=== PATIENT | female | born 1990 | race African-American/Black ===

== ENCOUNTER → 2018-06-28 | Outpatient (CLI) | payer SELFPAY ==
[2016-02-19 12:23] VITALS: BP 124/78
[~2018-06-28] MED LIST: IBUP-1027 PO
--- NOTE | 2018-06-29 08:12 | RAD ---
Obstetrical ultrasound, 06/28/2018: HISTORY: , unsure of dates Transabdominal scans were obtained. The uterus contains a single fetus demonstrating a crown-rump length of 5.8 cm. This suggests a gestational age of 12 weeks and 2 days yielding a sonographic EDC of 01/08/2019. activity and cardiac motion are present. The heart rate is 147 bpm. There is no evidence of subchorionic hemorrhage. The cervical length is approximately 5 cm. The ovaries are of normal size. A small 1.8 cm complicated cyst is present in the right ovary. The adnexal regions are otherwise unremarkable. No free fluid is evident in the pelvis. IMPRESSION: Single viable intrauterine fetus of 12-13 weeks gestational age as described above. Electronically signed by: Ward Caruso MD (06/29/2018 8:09 AM) [facility]
== END | disposition home or self-care (01) ==
LOC: US
PROVIDERS: ATTEND Family Medicine
DX: Z34.81 Encounter for supervision of other normal pregnancy, first trimester (principal); Z3A.13 13 weeks gestation of pregnancy
CPT/HCPCS: 76801

== ENCOUNTER 2021-04-18 13:14 | Emergency (ER) | payer MEDICAID ==
[~2021-04-18] VITALS: Ht 170.2 cm; Wt 81.8 kg
[2021-04-18] MEDS ORDERED: IV NORMAL SALINE 1000ML BAG 1,000 ML IV SCH (13:45)
[2021-04-18] MEDS ORDERED: fentaNYL PF VIAL 100 MCG/2 ML VIAL IVP ONE ×3 (13:45→16:45)
--- NOTE | 2021-04-18 13:52 | PHYS DOC ---
General Adult EDM: Chief Complaint: VAGINAL BLEEDING HPI: HPI: Patient is a 30 year old female who presents with abdominal cramping and large amount of vaginal bleeding that started about an hour prior to arrival. Patient was here [facility] for an ultrasound because she has her first appointment with Dr. Kim tomorrow. Ultrasound showing miscarriage at 9 weeks 5 days and had no cardiac activity. Patient rating her pain 7 out of 10 at this time. Patient stated she feels she needs to push. Patient is . Review of Systems: Review of Systems: Constitutional: Denies fever or chills. [] Eyes: Denies change in visual acuity. [] HENT: Denies nasal congestion or sore throat. [] Respiratory: Denies cough or shortness of breath. [] Cardiovascular: Denies chest pain or edema. [] GI: + abdominal pain, denies nausea, vomiting, bloody stools or diarrhea. [] : Denies dysuria. + Vaginal bleeding [] Musculoskeletal: Denies back pain or joint pain. [] Integument: Denies rash. [] Neurologic: Denies headache, focal weakness or sensory changes. [] Endocrine: Denies polyuria or polydipsia. [] Lymphatic: Denies swollen glands. [] Psychiatric: Denies depression or anxiety. [] Heart Score: C/O Chest Pain: No Current Medications: Current Medications Medications (Trade) Dose Ordered Sig/Violet Start Time Stop Time Status Last Admin Dose Admin Fentanyl Citrate (Fentanyl 2ml Vial) 75 mcg 1X ONCE 04/18/21 13:45 04/18/21 13:46 UNV Sodium Chloride 1,000 ml @ 1,000 mls/hr Q1H 04/18/21 13:45 04/18/21 14:44 UNV Allergies: Allergies: Allergies Coded Allergies Type Severity Reaction Last Updated Verified nifedipine Allergy Severe Anaphylaxis 02/19/16 Yes codeine Allergy Intermediate Nausea and Vomiting 02/19/16 Yes Physical Exam: PE: Constitutional: Well developed, well nourished, no acute distress, non-toxic appearance. [] HENT: Normocephalic, atraumatic, bilateral external ears normal, oropharynx moist, no oral exudates, nose normal. [] Eyes: PERRLA, EOMI, conjunctiva normal, no discharge. [] Neck: Normal range of motion, no tenderness, supple, no stridor. [] Cardiovascular:Heart rate regular rhythm, no murmur [] Lungs & Thorax: Bilateral breath sounds clear to auscultation [] Abdomen: Bowel sounds normal, soft, no tenderness, no masses, no pulsatile masses. Vaginal bleeding [] Skin: Warm, dry, no erythema, no rash. [] Back: No tenderness, no CVA tenderness. [] Extremities: No tenderness, no cyanosis, no clubbing, ROM intact, no edema. [] Neurologic: Alert and oriented X 3, normal motor function, normal sensory function, no focal deficits noted. [] Psychologic: Affect normal, judgement normal, mood normal. [] EKG: EKG: [] Radiology/Procedures: Radiology/Procedures: [] Impression: [facility] [address] [address] IMAGING REPORT Signed PATIENT: CORINA PRICE ACCOUNT: [id number] : 1990 LOCATION: ER AGE: 30 SEX: F EXAM STATUS: REG ER ORD. PHYSICIAN: JUAN ALBERTO JULIEN APRN REASON: increased pain, large amount vaginal bleeding PROCEDURE: OB < 14 WKS Obstetric ultrasound less than 14 weeks: Reason for examination: Increased pain with large amount of vaginal bleeding. Fe ferny demise on previous ultrasound examination. Comparison is made to previous study dated 04/16/2021. Transvaginal ultrasound examination of the pelvis was performed. Uterus measures 11 x 6.6 x 5.6 cm in greatest dimension. There is thickened endometrium at 2 cm. No intrauterine gestation is now identified.. Right ovary measures 4.8 x 3.2 x 1.9 cm in greatest dimension and shows good vascular flow and contains a 1.9 x 1.3 x 0.9 cm simple cyst. Left ovary measures 2.4 x 2.2 x 2.0 cm in greatest dimensions shows good vascular flow and multiple small follicles. No free fluid is seen. IMPRESSION: No intrauterine gestation is present on the current exam which would be consistent with spontaneous . 1.9 cm right ovarian cyst.. Electronically signed by: Reginaldo Obrien MD (04/18/2021 4:12 PM) [facility] DICTATED and SIGNED BY: REGINALDO OBRIEN MD DATE: 04/18/21 [id number] [facility] [address] [place] [address] IMAGING REPORT Signed PATIENT: CORINA PRICE ACCOUNT: [id number] : 1990 LOCATION: US AGE: 30 SEX: F EXAM STATUS: REG CLI ORD. PHYSICIAN: AYESHA ALVARENGA MD REASON: SMALL FOR DATES PROCEDURE: OB <14 WKS W/TV EXAM: Obstetrics sonogram. HISTORY: Small for dates. TECHNIQUE: Sonographic imaging of the pelvis was performed. COMPARISON: None. FINDINGS: The uterus measures 11.8 x 8.2 x 6.3 cm. The cervix measures 4.3 cm in length. There is a single intrauterine gestational sac with pole. The mean sac diameter is 4.72 cm, corresponding with a gestational age of 10 weeks and 2 days. The crown-rump length is 2.41 cm, corresponding with a gestational age of 9 weeks and 1 day. The estimated gestational age patient combined mean sac diameter and crown-rump length measurements is 9 weeks and 5 days. No cardiac activity is seen. The gestational sac is abnormal in configuration. The maternal ovaries are normal in size and demonstrate normal blood flow.. IMPRESSION: Single intrauterine fetus with an estimated gestational age of 9 weeks and 5 days and absent cardiac activity. This is consistent with intrauterine demise. Electronically signed by: Lindsay Mcrae MD (04/16/2021 1:00 PM) [id number] DICTATED and SIGNED BY: LINDSAY MCRAE MD DATE: 04/16/21 [id number] 0 Course & Med Decision Making: Course & Med Decision Making Pertinent Labs and Imaging studies reviewed. (See chart for details) See HPI. Alert and oriented x4. Ambulatory with steady gait. Skin Banning warm and dry. Large amount of vaginal bleeding with large clots. Patient is vinita and cramping. She is currently miscarrying. Pelvic Exam: Railroad Mechanic present Abdomen: Nontender External Genitalia: Normal Skin Speculum: Normal vaginal mucosa, large vaginal cervical bleeding with large clots Bimanual: No adnexal masses or tenderness, No CMT Ultrasound today shows no intrauterine . Patient is likely miscarriage fetus. I have done another pelvic exam and she is still having very large clots and blood is still trickling. I believe that the bleeding has slowed slightly. Patient is still having pain. She has had a total of 1 L of normal saline. I have ordered another liter for her. Her vital signs are stable. She has had a total of 2 doses of 75 mcg of fentanyl. I have ordered her a dose of 50 mcg of fentanyl now. I have spoke to Dr. Kim and he states he will come in and do a D&C. [] Dragon Disclaimer: Dragon Disclaimer: This electronic medical record was generated, in whole or in part, using a voice recognition dictation system. Departure Departure Impression: Primary Impression: Miscarriage Disposition: ADMITTED INPATIENT Admitting Physician: DILAN (DR KIM) Condition: STABLE Referrals: AYESHA ALVARENGA MD (PCP) AYESHA KIM MD Patient Instructions: Miscarriage Additional Instructions: Follow-up with Dr. Kim tomorrow as you are scheduled. Drink plenty of fluids to stay hydrated. If you begin going through more than 1 pad an hour return to the emergency room. JUAN ALBERTO JULIEN APRN Apr 18, 2021 13:52
[2021-04-18] MEDS ORDERED: fentaNYL PF VIAL 100 MCG/2 ML VIAL ONE ×3 (13:55→19:43)
[2021-04-18 14:12] LABS: BASO % 1 % (0-3); EOS # 0.2 x10^3/uL (0.0-0.7); EOS % 2 % (0-3); HEMATOCRIT 34.7 % (36.0-47.0); HEMOGLOBIN 11.3 g/dL (12.0-15.5); LYMPH # 2.1 x10^3/uL (1.0-4.8); LYMPH % 21 % (24-48); MEAN CORPUSCULAR HEMOGLOBIN 28 pg (25-35); MEAN CORPUSCULAR HGB CONC 33 g/dL (31-37); MEAN CORPUSCULAR VOLUME 85 fL (79-100); MONO # 0.7 x10^3/uL (0.0-1.1); MONO % 7 % (0-9); NEUT # 7.1 x10^3/uL (1.8-7.7); NEUT % 71 % (31-73); PLATELET COUNT 264 x10^3/uL (140-400); RED BLOOD COUNT 4.08 x10^6/uL (3.50-5.40); RED CELL DISTRIBUTION WIDTH 13.5 % (11.5-14.5); WHITE BLOOD COUNT 10.1 x10^3/uL (4.0-11.0)
[2021-04-18 14:27] LABS: CALCIUM 8.5 mg/dL (8.5-10.1); CREATININE 0.7 mg/dL (0.6-1.0); GFR 118.9
[2021-04-18 14:32] LABS: ALBUMIN/GLOBULIN RATIO 0.8 (1.0-1.7); TOTAL BILIRUBIN 0.3 mg/dL (0.2-1.0); TOTAL PROTEIN 6.9 g/dL (6.4-8.2)
--- NOTE | 2021-04-18 16:15 | RAD ---
Obstetric ultrasound less than 14 weeks: Reason for examination: Increased pain with large amount of vaginal bleeding. demise on previou s ultrasound examination. Comparison is made to previous study dated 04/16/2021. Transvaginal ultrasound examination of the pelvis was performed. Uterus measures 11 x 6.6 x 5.6 cm in greatest dimension. There is thickened endometrium at 2 cm. No i ntrauterine gestation is now identified.. Right ovary measures 4.8 x 3.2 x 1.9 cm in greatest dimension and shows good vascular flow and contai ns a 1.9 x 1.3 x 0.9 cm simple cyst. Left ovary measures 2.4 x 2.2 x 2.0 cm in greatest dimensions shows good vascular flow and multiple s mall follicles. No free fluid is seen. IMPRESSION: No intrauterine gestation is present on the current exam which would be consistent with spontaneous a bortion. 1.9 cm right ovarian cyst.. Electronically signed by: Lorrie Harmon MD (04/18/2021 4:12 PM) [facility]
[2021-04-18] MEDS ORDERED: IV NORMAL SALINE 1000ML BAG 1,000 ML IV ONE (16:45)
[2021-04-18] MEDS ORDERED: ONDANSETRON PF 4 MG/2 ML VIAL. ONE (17:22)
[2021-04-18] MEDS ORDERED: LIDOCAINE 2% PF 5 ML VIAL. ONE (17:22)
[2021-04-18] MEDS ORDERED: PROPOFOL 10 MG/ML (20ML) VIAL. IV ONE (17:22)
[2021-04-18] MEDS ORDERED: MIDAZOLAM HCL/PF 2 MG/2 ML VIAL. ONE (17:23)
--- NOTE | 2021-04-18 17:42 | PDOC1 ---
CORRESPONDENCE ANALYST H&P Date of Admission: Date of Admission: History of Present Illness: The pt is a 30y with a LMP of 01/13/21 who presented to the ER with VB and pain. The pt underwent an u/s on Monday (04/16/21) revealing a single intrauterine fetus with an estimated gestational age of 9 weeks and 5 days and absent cardiac activity. This is consistent with intrauterine demise. Since the u/s she has had some light pink d/c, that seemed nml. Early today she felt fine, and then later she started to experience a bunch of pain. She did felt like something was coming out of her and noticed a lot of blood coming out. She does not recal seeing any POC just clots. The bleeding kept coming so her mother took her to the hospital. She could not even walk. In the ER her hgb was found to be 11.3. A repeat u/s revealed the following: Uterus measures 11 x 6.6 x 5.6 cm in greatest dimension. There is thickened endometrium at 2 cm. No intrauterine gestation is now identified. The pt feels her pain has not improved at all. She is unsure if her bleeding has slowed. Discussed D&C with the pt. She was not even aware of the u/s re sults from Monday, so she is taking all this information very hard. PMH: HTN (per pt) PSH: Lap ovarian cystectomy Meds: None All: nifedipine, codeine, pyridium OBHx: TSVD x 1, SAB x 1 Photographic Hand Developer: LMP 01/13/21 15yo / regular SH: no tob, no EtOH FH: CHF, DM, CA, alzheimers Medications: Meds: Current Medications Medications (Trade) Dose Ordered Sig/Violet Route PRN Reason Start Time Stop Time Status Last Admin Dose Admin Sodium Chloride 1,000 ml @ 1,000 mls/hr Q1H IV 04/18/21 13:45 04/18/21 14:44 DC 04/18/21 14:03 Fentanyl Citrate (Fentanyl 2ml Vial) 75 mcg 1X ONCE IVP 04/18/21 13:45 04/18/21 13:59 DC 04/18/21 14:00 Fentanyl Citrate (Fentanyl 2ml Vial) 75 mcg 1X ONCE IVP 04/18/21 15:15 04/18/21 15:16 DC 04/18/21 15:34 Sodium Chloride 1,000 ml @ 1,000 mls/hr 1X ONCE IV 04/18/21 16:45 04/18/21 17:44 04/18/21 17:22 Fentanyl Citrate (Fentanyl 2ml Vial) 50 mcg 1X ONCE IVP 04/18/21 16:45 04/18/21 16:46 DC 04/18/21 17:15 Allergies: Coded Allergies: nifedipine (Verified Allergy, Severe, Anaphylaxis, 02/19/16) codeine (Verified Allergy, Intermediate, Nausea and Vomiting, 02/19/16) Physical Exam: Vital Signs: Vital Signs Date Time Temp Pulse Resp B/P (MAP) Pulse Ox O2 Delivery O2 Flow Rate FiO2 04/18/21 17:15 17 100 Room Air 04/18/21 17:13 89 108/61 (77) 04/18/21 13:15 98.9 98.9 PE: GENERAL: No apparent distress. Alert and oriented. HEENT: Head normocephalic, atraumatic. NECK: Supple LUNGS: Clear to auscultation. HEART: RRR, S1, S2 present, pulses intact ABDOMEN: Soft, positive bowel sounds. EXTREMITIES: No cyanosis or edema. NEUROLOGIC: Normal speech, normal tone PSYCHIATRIC: Normal affect, normal mood. SKIN: No ulceration. Labs: Laboratory Tests Test 04/18/21 13:50 White Blood Count 10.1 x10^3/uL (4.0-11.0) Red Blood Count 4.08 x10^6/uL (3.50-5.40) Hemoglobin 11.3 g/dL (12.0-15.5) L Hematocrit 34.7 % (36.0-47.0) L Mean Corpuscular Volume 85 fL (79-100) Mean Corpuscular Hemoglobin 28 pg (25-35) Mean Corpuscular Hemoglobin Concent 33 g/dL (31-37) Red Cell Distribution Width 13.5 % (11.5-14.5) Platelet Count 264 x10^3/uL (140-400) Neutrophils (%) (Auto) 71 % (31-73) Lymphocytes (%) (Auto) 21 % (24-48) L Monocytes (%) (Auto) 7 % (0-9) Eosinophils (%) (Auto) 2 % (0-3) Basophils (%) (Auto) 1 % (0-3) Neutrophils # (Auto) 7.1 x10^3/uL (1.8-7.7) Lymphocytes # (Auto) 2.1 x10^3/uL (1.0-4.8) Monocytes # (Auto) 0.7 x10^3/uL (0.0-1.1) Eosinophils # (Auto) 0.2 x10^3/uL (0.0-0.7) Basophils # (Auto) 0.0 x10^3/uL (0.0-0.2) Maternal Serum HCG Beta Subunit 731 mIU/mL (0-5) H Sodium Level 139 mmol/L (136-145) Potassium Level 4.0 mmol/L (3.5-5.1) Chloride Level 105 mmol/L (98-107) Carbon Dioxide Level 21 mmol/L (21-32) Anion Gap 13 (6-14) Blood Urea Nitrogen 10 mg/dL (7-20) Creatinine 0.7 mg/dL (0.6-1.0) Estimated GFR (Cockcroft-Gault) 118.9 BUN/Creatinine Ratio 14 (6-20) Glucose Level 104 mg/dL (70-99) H Calcium Level 8.5 mg/dL (8.5-10.1) Total Bilirubin 0.3 mg/dL (0.2-1.0) Aspartate Amino Transferase (AST) 14 U/L (15-37) L Alanine Aminotransferase (ALT) 25 U/L (14-59) Alkaline Phosphatase 80 U/L (46-116) Total Protein 6.9 g/dL (6.4-8.2) Albumin 3.0 g/dL (3.4-5.0) L Albumin/Globulin Ratio 0.8 (1.0-1.7) L Laboratory Tests 04/18/21 13:50 Laboratory Tests 04/18/21 13:50 Laboratory Tests 04/18/21 13:50 Assessment & Plan: A/P 30y with an incomplete 9wk AB 1.) Incomplete AB will move toward suction D&C 2.) VB still a good amt, Hgb 11.3 3.) Pain 2/2 to AB 4.) Blood type - B pos AYESHA JI MD Apr 18, 2021 17:42
[2021-04-18] MEDS ORDERED: HYDROmorphone 2 MG/ML INJ. IVP PRN ×2 (18:00→19:00)
[2021-04-18] MEDS ORDERED: fentaNYL PF VIAL 100 MCG/2 ML VIAL IVP PRN ×4 (18:00→19:00)
[2021-04-18] MEDS ORDERED: MORPHINE SULFATE 2 MG/ML INJ. IVP PRN ×2 (18:00→19:00)
[2021-04-18] MEDS ORDERED: IV RINGERS,LACTATED 1000ML 1,000 ML IV SCH ×2 (18:00→19:00)
[2021-04-18] MEDS ORDERED: PROCHLORPERAZINE 10 MG/2 ML VIAL. IVP PRN ×2 (18:00→19:00)
[2021-04-18] MEDS ORDERED: SEVOFLURANE 16 TO 30 MINUTES. IH ONE (18:44)
[2021-04-18] MEDS ORDERED: DEXAMETHASONE SOD PHOS 4 MG/ML VIAL ONE (18:44)
--- NOTE | 2021-04-18 18:57 | PDOC4 ---
OPERATIVE NOTE: PreOp Dx: 1.) 9wk incomplete AB, 2.) VB, 3.) abd pain PostOp Dx: same Procedure: Suction D&C Surgeon: Giancarlo Ji Anesthesia: LMA EBL: 50 cc Fluids: 800 cc UOP: 300 cc Findings: about half liter of blood, clot, and POC in the vault Specimen: POC Complications: None AYESHA JI MD Apr 18, 2021 18:57
[2021-04-18] MEDS ORDERED: DOXYCYCLINE HYCLATE 100 MG in IV DEXTROSE 5% 100ML 100 ML IV ONE ×2 (19:00→20:30)
[2021-04-18] MEDS ORDERED: OXYC1TAB15 PO (19:18)
[2021-04-18] MEDS ORDERED: IBUP-1060 PO (19:18)
[2021-04-18] MEDS ORDERED: oxyCODONE/APAP 5/325 1 TAB TABLET PO ONE (19:45)
[2021-04-18] MEDS ORDERED: IBUPROFEN 400 MG TABLET. PO ONE (20:00)
[2021-04-18 20:02] VITALS: BP 122/79
--- NOTE | 2021-04-18 20:29 | OP ---
DATE OF SURGERY: 04/18/2021 PREOPERATIVE DIAGNOSES: 1. A 9-week incomplete . 2. Vaginal bleeding. 3. Abdominal pain. POSTOPERATIVE DIAGNOSES: 1. A 9-week incomplete . 2. Vaginal bleeding. 3. Abdominal pain. PROCEDURE: Suction D and C. SURGEON: Benji Kim MD ANESTHESIA: LMA. ESTIMATED BLOOD LOSS: 50 mL. FLUIDS: 800 mL. URINE OUTPUT: 300 mL. FINDINGS: About half a liter of blood clot and products of conception in the vault. SPECIMENS REMOVED: Products of conception. COMPLICATIONS: None. DESCRIPTION OF PROCEDURE: The patient was taken to the operating room, where LMA was placed without difficulty. The patient was prepped and draped in normal sterile fashion. Speculum was placed in the vagina. There was a large amount of blood clot and products in the vagina. This was removed with the suction curette. Once the anterior lip could be visualized, a single tooth tenaculum was then placed. The uterus was then sounded to approximately 7 cm. An 11 cm curved curette was then advanced to the uterine fundus and suction was activated. The curette was rotated and all products of conception were cleared. This was approximately 2 passes. At that point, sharp curetting was performed with gritty texture felt in all 4 quadrants. The suction curette was then placed one more time with minimal blood returned. At that point, the procedure was terminated. The tenaculum was removed with minimal bleeding from the tenaculum site. Good hemostasis was noted. The patient was taken to the recovery room in stable condition. A 200 mg of doxycycline were given after the procedure. KATHRYN DR: Osvaldo TID: [id number]
--- NOTE | 2021-04-20 16:13 | PATHOLOGY ---
[facility] Accession Number: [id number] . 01 Material submitted: . product of conception - PRODUCTS OF CONCEPTION . 01 Clinical history: . MISCARRIAGE, INCOMPLETE AB AT 9 WKO SUCTION D/C . 02 Diagnosis: Uterine contents, suction D and C: - Products of conception, comprised of portion of gestational sac, degenerating and focally necrotic immature chorionic villi focally containing nucleated red cells, and segments of decidual tissue showing focal hemorrhage, necrosis, and acute inflammation. (JPM/db; 04/20/2021) LBQ 04/20/2021 1355 Local . 02 Electronically signed: . Alejandro Powell MD, Pathologist NPI- [id number] . 01 Gross description: . The specimen is received in formalin, labeled "Lelo Ordonez, products of conception" and consists of multiple hemorrhagic soft irregular tissues aggregating 12.5 x 10.4 x 2.4 cm. Chorionic villi and gestational sac remnants are identified. No discrete parts or hydropic villi are present. Relay Shop Tester sections are submitted in A1-A3.([employer] [place]; 04/19/2021) DKA/DKA 04/19/2021 1715 Local . 02 Pathologist provided ICD-10: O03.4 . 02 CPT . 233425 Specimen Comment: A courtesy copy of this report has been sent to [phone] Specimen Comment: Report sent to Specimen Comment: A duplicate report has been generated due to demographic updates. Performed at: 01 [facility] [address], [place] [id number] MD Av Haynes MD Phone: [phone] Performed at: 02 [facility] [address] [place], [place] [id number] MD Alejandro Powell MD Phone: [phone]
== END 2021-04-18 20:20 | disposition home or self-care (01) ==
LOC: ER 13:14
DX: O03.9 Complete or unspecified spontaneous abortion without complication (principal); Z20.822 Contact with and (suspected) exposure to COVID-19; Z88.5 Allergy status to narcotic agent; Z88.8 Allergy status to other drugs, medicaments and biological substances
CPT/HCPCS: 36415; 76801; 80053; 84702; 85025; 86850; 86900; 86901; 87426; 88305; 96361; 96365; 96375; 96376; 99285; A4930; J1100; J2250; J2405; J2704; J3010; J3490; J7030; J7060; A4322